=== PATIENT | female | born 1985 | race Caucasian/White ===

== ENCOUNTER 2021-01-29 17:41 | Inpatient (IN) | payer OTHER ==
--- NOTE | 2021-01-29 19:30 | NUR ---
Pt. was admitted to the unit as a direct admit from [facility]. She has been c/o back pain and needs to be evaluated by urology. Pt. is a in- mate and was in [facility] accompanied by security from [employer] [place]. Pt. is pleasant and cooperative. She was oriented to her room. Paola CASTELLANOS called and notified of admission.
[2021-01-29 19:49] VITALS: BP 106/64
[2021-01-30] MEDS ORDERED: FLEXERIL PO (03:33)
[2021-01-30] MEDS ORDERED: TOPAMAX100 MG PO (03:34)
[2021-01-30] MEDS ORDERED: FENOFIBRATE150 MG PO (03:35)
[2021-01-30] MEDS ORDERED: ONZETRA XSAIL11 MG PO (03:37)
[2021-01-30] MEDS ORDERED: IRON325 M1 PO (03:37)
[2021-01-30] MEDS ORDERED: LEVO-T25 MCG PO (03:38)
[2021-01-30] MEDS ORDERED: LOVASTATIN 20 M20 MG PO (03:39)
[2021-01-30] MEDS ORDERED: PRENATAL VITAMIN PO (03:43)
--- NOTE | 2021-01-30 05:28 | NUR ---
Pt. rested quietly at intervals during the night when checked on during frequent rounds. Iv pain medication given for c/o back pain (see emar) with some relief noted. Zofran also given for nausea (see emar) with re- lief. Continues to have two security guards in room at all times. Pt. has one upper and one lower extremity shackled to the bed.
[2021-01-30 05:43] LABS: CALCIUM 7.8 mg/dL (8.5-10.1); CREATININE 0.8 mg/dL (0.6-1.0); POTASSIUM 3.5 mmol/L (3.5-5.1)
[2021-01-30 08:40] VITALS: BP 120/73
--- NOTE | 2021-01-30 15:49 | NUR ---
Assumed pt care this am, vs stable. With extreme pain in the am, seen by urology and was taken down to the OR for stent placement. Pain is now managed with medications, diet is tolerated. Pt has 2 officers with her in the room, at all times. Is able to use the bed side commode.
[2021-01-30 16:58] VITALS: BP 110/73
[2021-01-30 20:15] VITALS: BP 109/72
[2021-01-31 05:28] LABS: CALCIUM 8.1 mg/dL (8.5-10.1); CREATININE 0.7 mg/dL (0.6-1.0); POTASSIUM 3.8 mmol/L (3.5-5.1)
[2021-01-31 05:32] LABS: HEMATOCRIT 32.3 % (37.0-47.0); HEMOGLOBIN 10.9 gm/dL (12.0-15.0); MCH 30.2 pg (26.0-34.0); MCHC 33.7 g/dL (28.0-37.0); MCV 89.5 fL (80.0-100.0); RBC 3.61 mil/uL (4.20-5.00); RDW 13.5 % (10.5-14.5); WBC 6.6 thou/uL (4.0-11.0)
--- NOTE | 2021-01-31 08:02 | NUR ---
Pt. rested quietly at intervals during the night when checked on during frequent rounds. She has been medicated for c/o back pain (see emar) with some relief noted. Tolerating clear liquids.
[2021-01-31 08:45] VITALS: BP 114/78
[2021-01-31] MEDS ORDERED: TYLENOL325 MG PO (12:35)
[2021-01-31 12:50] VITALS: BP 114/78
--- NOTE | 2021-01-31 14:42 | NUR ---
Assumed pt care this am, vs stable. Stent was pulled and removed by accident by the pt this am. Seen by urologist pt stated pain was on the right side, cleared from urology stand point. Mid morning pain was complaining of left lower abdominal pain that wound radiate to the back, same pain when pt had come in. Pain medication was not effective, MD advised. US done, DC orders given by MD. Dc instructions and prescriptions given to the pt and 2 officers in the room. Pt expressed concern about what other doctor had mentioned pt having diverticulitis and constipation. Report given to facility nurse. IV removed, pt took a bath. Awaiting picj up by the facility.
== END 2021-01-31 16:48 | DRG 661 ==
LOC: 4W 17:41
PROVIDERS: Nurse Practitioner Family; ADMIT Hospitalist; ATTEND Hospitalist
DX: N13.2 Hydronephrosis with renal and ureteral calculous obstruction (principal); E78.5 Hyperlipidemia, unspecified; F32.9 Major depressive disorder, single episode, unspecified; G62.9 Polyneuropathy, unspecified; G43.909 Migraine, unspecified, not intractable, without status migrainosus; R31.0 Gross hematuria; Z20.822 Contact with and (suspected) exposure to COVID-19; Z23 Encounter for immunization; Z90.49 Acquired absence of other specified parts of digestive tract; Z80.0 Family history of malignant neoplasm of digestive organs; Z79.899 Other long term (current) drug therapy
CPT/HCPCS: 10047; 50101; 50164; 51620; 51767; 56674; 56815; 58510; 58565; 62110; 62900; 70005